=== PATIENT | female | born 1970 | race Caucasian/White ===

== ENCOUNTER 2017-06-03 05:37 | Inpatient (IN) | payer OTHER, MEDICAID ==
[2017-06-03] MEDS ORDERED: GELATIN SIZE 100 SPONGE (06:47)
[2017-06-03] MEDS ORDERED: THROMBIN 5000 UNIT VIAL (06:47)
[2017-06-03] MEDS: CEFAZOLIN 2 GM/50 ML (PMX) 50 ML IVPB (06:47)
[2017-06-03] MEDS ORDERED: LACTATED RINGER'S 1,000 ML (ENTER RATE) IV* (07:00)
[2017-06-03] MEDS ORDERED: CEFAZOLIN 1 GM INJ (07:00)
[2017-06-03] MEDS ORDERED: MIDAZOLAM 1 MG/ML 2 ML INJ (07:05)
[2017-06-03] MEDS ORDERED: FENTAnyl 50 MCG/ML VIAL (07:05)
[2017-06-03] MEDS ORDERED: ROCURONIUM 50 MG INJ (07:45)
[2017-06-03] MEDS ORDERED: LIDOCAINE 2% (SDV) 5 ML INJ (07:45)
[2017-06-03] MEDS ORDERED: PROPOFOL 20 ML (07:45)
[2017-06-03] MEDS ORDERED: SUCCINYLCHOLINE CHLORIDE 100 MG/5 ML SYG IV (07:45)
[2017-06-03] MEDS ORDERED: METOCLOPRAMIDE 10 MG INJ (07:46)
[2017-06-03] MEDS ORDERED: ONDANSETRON 4 MG INJ (07:46)
[2017-06-03] MEDS: BUPIVACAINE 0.25% (MPF) 30 ML INJ (08:12)
[2017-06-03] MEDS: POLYMYXIN/BACITRACIN 1L IRRIG (08:13)
[2017-06-03] MEDS ORDERED: SUGAMMADEX SODIUM 200 MG/2 ML VIAL IV ×2 (08:49→09:17)
[2017-06-03] MEDS ORDERED: HYDROmorphONE (0.2 MG/ML) 10ML SYG IV (09:00)
[2017-06-03] MEDS ORDERED: ONDANSETRON 4 MG INJ IV (09:00)
[2017-06-03] MEDS ORDERED: DIPHENHYDRAMINE 50 MG INJ IV (09:00)
[2017-06-03] MEDS ORDERED: FENTAnyl 50 MCG/ML VIAL IV ×2 (09:00)
[2017-06-03] MEDS ORDERED: LABETALOL HCL 20MG INJ IV (09:00)
[2017-06-03] MEDS ORDERED: MEPERIDINE 25 MG INJ IV (09:00)
[2017-06-03] MEDS: hydrALAzine 20 MG INJ IV (09:22)
[2017-06-03] MEDS ORDERED: ACETAMINOPHEN 325 MG TAB PO (09:30)
[2017-06-03] MEDS ORDERED: NACL 0.9% 3 ML SYG IV (09:30)
[2017-06-03] MEDS ORDERED: ZOLPIDEM 5 MG TAB PO (09:30)
[2017-06-03] MEDS ORDERED: NALOXONE (0.4 MG/ML) INJ IV (09:30)
[2017-06-03] MEDS ORDERED: TRIMETHOBENZAMIDE 100 MG/ML VIAL IM (09:30)
[2017-06-03] MEDS ORDERED: AL HYDROX/MG HYDROX/SIMETH 30 ML CUP PO (09:30)
[2017-06-03] MEDS ORDERED: DIPHENHYDRAMINE 50 MG CAP PO (09:30)
[2017-06-03] MEDS ORDERED: DIAZEPAM 5 MG/ML SYG IM (09:30)
[2017-06-03] MEDS: HYDROmorphONE (0.2 MG/ML) 10ML SYG IV ×3 (09:36→10:11)
[2017-06-03] MEDS: HYDROmorphONE 0.2 MG/ML PCA IV ×2 (09:55→21:20)
[2017-06-03] MEDS: DEXTROSE 5%-0.45% NACL 1,000 ML IV ×2 (11:02→21:17)
[2017-06-03] MEDS ORDERED: traMADol 50 MG TAB PO (12:00)
[2017-06-03] MEDS: GABAPENTIN 100 MG CAP PO ×2 (12:03→20:11)
[2017-06-03] MEDS: CEFAZOLIN 1 GM/50 ML (PMX) 50 ML IVPB ×3 (12:04→23:17)
[2017-06-03] MEDS: RANITIDINE 150 MG TAB PO ×2 (12:53→20:11)
[2017-06-03] MEDS ORDERED: RANITIDINE 150 MG TAB PO (21:00)
[2017-06-03] MEDS: ONDANSETRON 4 MG INJ IV (23:08)
[2017-06-04] MEDS: DIAZEPAM 5 MG TAB PO (00:19)
[2017-06-04] MEDS: DEXTROSE 5%-0.45% NACL 1,000 ML IV (05:17)
[2017-06-04] MEDS: CEPASTAT LOZENGE MT (05:34)
[2017-06-04] MEDS: CEFAZOLIN 1 GM/50 ML (PMX) 50 ML IVPB (05:34)
[2017-06-04 06:01] LABS: HEMOGLOBIN 9.4 g/dl (12.0-16.0)
[2017-06-04 06:26] LABS: ANION GAP 13 (8-16); BLOOD UREA NITROGEN 7 mg/dl (7-20); CALCIUM 8.4 mg/dl (8.4-10.2); CARBON DIOXIDE 26 mmol/L (21-31); CHLORIDE 106 mmol/L (97-110); CREATININE 0.63 mg/dl (0.44-1.00); GLUCOSE 100 mg/dl (70-220); POTASSIUM 3.6 mmol/L (3.5-5.1); SODIUM 141 mmol/L (135-144)
[2017-06-04] MEDS: HYDROmorphONE 0.2 MG/ML PCA IV (07:01)
[2017-06-04] MEDS ORDERED: BETHANECHOL 25 MG TAB PO (08:00)
[2017-06-04] MEDS: PRAMIPEXOLE 1 MG TAB PO (08:06)
[2017-06-04] MEDS: GABAPENTIN 100 MG CAP PO ×3 (08:06→22:00)
[2017-06-04] MEDS: DOCUSATE SODIUM 100 MG CAP PO ×2 (08:06→22:00)
[2017-06-04] MEDS: FERROUS SULFATE (EC) 325 MG TAB PO ×3 (08:06→22:00)
[2017-06-04] MEDS: DULOXETINE 30 MG CAP DR PO (08:07)
[2017-06-04] MEDS: ASCORBIC ACID 500 MG TAB PO ×2 (08:07→22:00)
[2017-06-04] MEDS: RANITIDINE 150 MG TAB PO ×2 (08:08→22:00)
[2017-06-04] MEDS: PANTOPRAZOLE (EC) 40 MG TAB PO (08:11)
[2017-06-04] MEDS: BETHANECHOL 25 MG TAB PO (08:40)
[2017-06-04] MEDS: ATENOLOL 100 MG TAB PO (09:00)
[2017-06-04] MEDS: ONDANSETRON 4 MG INJ IV ×2 (10:10→19:05)
[2017-06-04] MEDS: HYDROCODONE/APAP (5/325) TAB PO ×3 (10:10→19:09)
[2017-06-04 10:58] LABS: ADD UMIC YES; UR ASCORBIC ACID NEGATIVE (NEGATIVE); UR BACTERIA FEW /HPF (NONE SEEN); UR BILIRUBIN (Dip) NEGATIVE (NEGATIVE); UR BLOOD (Dip) 2+ mg/dL (NEGATIVE); UR CLARITY CLEAR (CLEAR); UR COLOR YELLOW (YELLOW); UR GLUCOSE (Dip) NEGATIVE (NEGATIVE); UR KETONES (Dip) NEGATIVE (NEGATIVE); UR LEUKOCYTE ESTERASE (Dip) NEGATIVE Leu/ul (NEGATIVE); UR NITRITE (Dip) NEGATIVE (NEGATIVE); UR RBC 6 /HPF (0-5); UR SPECIFIC GRAVITY (Dip) 1.013 (1.003-1.030); UR TOTAL PROTEIN (Dip) NEGATIVE (NEGATIVE); UR UROBILINOGEN (Dip) NEGATIVE (NEGATIVE); UR WBC 4 /HPF (0-5)
[2017-06-04] MEDS: PROCHLORPERAZINE 10 MG TAB PO (21:08)
[2017-06-05] MEDS: DULOXETINE 30 MG CAP DR PO (08:42)
[2017-06-05] MEDS: ASCORBIC ACID 500 MG TAB PO (08:42)
[2017-06-05] MEDS: PANTOPRAZOLE (EC) 40 MG TAB PO (08:42)
[2017-06-05] MEDS: RANITIDINE 150 MG TAB PO (08:42)
[2017-06-05] MEDS: GABAPENTIN 100 MG CAP PO (08:42)
[2017-06-05] MEDS: FERROUS SULFATE (EC) 325 MG TAB PO (08:42)
[2017-06-05] MEDS: DOCUSATE SODIUM 100 MG CAP PO (08:45)
[2017-06-05] MEDS: ATENOLOL 100 MG TAB PO (08:45)
[2017-06-05] MEDS: HYDROCODONE/APAP (5/325) TAB PO (08:46)
== END 2017-06-05 13:17 | disposition home or self-care (01) | DRG 520 ==
LOC: REC 05:37 → MS1 10:33
PROC: 0SB20ZZ Excision of Lumbar Vertebral Disc, Open Approach (ICD-10-PCS; principal; 2017-06-03 07:00)
PROC: 0SB40ZZ Excision of Lumbosacral Disc, Open Approach (ICD-10-PCS; 2017-06-03 07:00)
DX: M51.26 Other intervertebral disc displacement, lumbar region (principal); M51.27 Other intervertebral disc displacement, lumbosacral region; F17.210 Nicotine dependence, cigarettes, uncomplicated; I10 Essential (primary) hypertension; G62.9 Polyneuropathy, unspecified; G89.4 Chronic pain syndrome
CPT/HCPCS: 72020; 80048; 81001; 85014; 85018; 86850; 86900; 86901; 86920; 87086; 88304; 97116; 97161; 97530